=== PATIENT | male | born 1965 | race Caucasian/White ===

== ENCOUNTER → 2023-01-13 | Outpatient (CLI) | payer BC | LOC: LAB 14:43 → LAB SHORT 14:43 | DX: D17.21 Benign lipomatous neoplasm of skin and subcutaneous tissue of right arm (principal) | CPT/HCPCS: 88304 ==

== ENCOUNTER → 2024-06-07 | Outpatient (CLI) | payer BC ==
[2024-06-07 18:57] LABS: Influenza A, PCR NEGATIVE (NEGATIVE); Influenza B, PCR NEGATIVE (NEGATIVE); Resp Syncytial Virus, PCR NEGATIVE (NEGATIVE); SARS-Cov-2 (COVID-19) PCR, MMC NEGATIVE (NEGATIVE)
== END ==
LOC: LAB SHORT 16:02 → LAB 16:02
PROVIDERS: Registered Nurse
DX: R05.9 Cough, unspecified (principal)
CPT/HCPCS: 0241U

== ENCOUNTER 2024-11-15 12:03 | Day surgery (SDC) | payer BC ==
[~2024-11-15] VITALS: Ht 188 cm; Wt 90.3 kg
[~2024-11-15 12:03] MED LIST: Balanced Salt Epinephrine Irrigation Solution 500 mL IR SCH; FentaNYL Citrate 50 MCG/ML 2 ML Injection ONE; Midazolam HCl 1MG / ML 2ML Vial ONE; Moxifloxacin HCL 0.5 MG/0.1 ML 0.4MLSYR LEFTEYE SCH; PHENYLEPHRINE\\TROPICAMIDE\\TETRACAINE OPHTHALMIC DILATING SOLN LEFTEYE PRN; Povidone-Iodine 450 DROP/30 ML Solution LEFTEYE SCH; Povidone-Iodine 450 DROP/30 ML Solution ONE; Tetracaine HCl/Pf 0.5% Opth Soln 4 ml ONE
[2024-11-15 13:38] VITALS: BP 113/65
== END 2024-11-15 13:30 | disposition home or self-care (01) ==
LOC: ORSCSDS 12:03
PROVIDERS: Student in an Organized Health Care Education/Training Program
PROC: 08RK3JZ Replacement of Left Lens with Synthetic Substitute, Percutaneous Approach (ICD-10-PCS; principal; 2024-11-15 13:30)
DX: H25.812 Combined forms of age-related cataract, left eye (principal); Z96.1 Presence of intraocular lens; H52.202 Unspecified astigmatism, left eye
CPT/HCPCS: J2250; J3010; J7120; V2632

== ENCOUNTER → 2025-02-15 | Outpatient (CLI) | payer BC | LOC: LAB SHORT 09:30 | DX: R82.90 Unspecified abnormal findings in urine (principal) | CPT/HCPCS: 87086 ==